=== PATIENT | female | born 1990 | race Caucasian/White ===

== ENCOUNTER 2024-04-21 17:06 | Emergency (ER) | payer MEDICAID, OTHER ==
[~2024-04-21] VITALS: Ht 160 cm; Wt 58.2 kg
[~2024-04-21 17:06] MED LIST: ALBU17AE27 IH
[2024-04-21 17:17] VITALS: BP 133/96; PULSE 92; RESP 18; TEMP 98.8
[2024-04-21] MEDS: ACETAMINOPHEN 325 MG TABLET PO ONE (17:57)
[2024-04-21] MEDS: ONDANSETRON HCL 4 MG TABLET PO ONE (17:57)
[2024-04-21 18:12] LABS: BASOPHILS % (AUTO) 0.7 % (0.0-2.0); HEMATOCRIT 38.6 % (36-46); HEMOGLOBIN 12.6 g/dL (12.0-16.0); LYMPHOCYTES # (AUTO) 2.4 K/uL (1.0-4.8); LYMPHOCYTES % (AUTO) 29.9 % (22.0-44.0); MEAN CORPUSCULAR HGB CONC 32.7 G/dL (31.0-37.0); MEAN CORPUSCULAR VOLUME 80 fL (80-100); MONOCYTES # (AUTO) 0.7 K/uL (0.1-1.0); MONOCYTES % (AUTO) 8.8 % (2.0-9.0); NEUTROPHILS # (AUTO) 4.7 K/uL (1.8-7.7); NEUTROPHILS % (AUTO) 59.6 % (40.0-70.0); PLATELET COUNT (AUTO) 367 K/uL (150-450); RED BLOOD CELL COUNT(AUTO) 4.86 MIL/uL (4.00-5.20); RED CELL DISTRIBUTION WIDTH 14.4 % (11.5-14.5); WHITE BLOOD COUNT (AUTO) 7.9 K/uL (4.5-11.0)
[2024-04-21 18:22] LABS: ANION GAP 8 mmol/L (8-16); CALCIUM, TOTAL 9.1 mg/dL (8.8-10.5); CARBON DIOXIDE 30 mmol/L (22-29); CHLORIDE 101 mmol/L (98-107); CREATININE 0.55 mg/dL (0.60-1.30); GLOMERULAR FILTR. RATE CALC > 60 mL/min (>60); GLUCOSE,RANDOM 123 mg/dL (70-110); POTASSIUM 3.5 mmol/L (3.5-5.1); SODIUM SERUM 139 mmol/L (136-145); UREA NITROGEN, BLOOD 8 mg/dL (7-18)
[2024-04-21 18:26] LABS: ALANINE AMINOTRANSFERASE 19 U/L (12-78); ALBUMIN 3.6 g/dL (3.4-5.0); ALKALINE PHOSPHATASE 82 U/L (46-116); ASPARTATE AMINOTRANSFERASE 13 U/L (15-37); BILIRUBIN,TOTAL 0.2 mg/dL (0.1-1.0); CREATINE KINASE, TOTAL ONLY 71 U/L (26-192); LIPASE 26 U/L (16-77); TOTAL PROTEIN, SERUM 7.8 g/dL (6.4-8.2)
[2024-04-21 18:31] LABS: TROPONIN I-HIGH SENSITIVITY 13 ng/L (<51)
== END 2024-04-21 19:05 | disposition home or self-care (01) ==
LOC: EMS 17:09
DX: M54.12 Radiculopathy, cervical region (principal); R07.9 Chest pain, unspecified; R11.0 Nausea; J45.909 Unspecified asthma, uncomplicated; Z88.0 Allergy status to penicillin
CPT/HCPCS: 99285; 71045; 80053; 82550; 83690; 84484; 84703; 85025; 36415; 93005; Q0162

== ENCOUNTER 2024-11-02 06:12 | Emergency (ER) | payer MEDICAID, OTHER ==
[~2024-11-02] VITALS: Ht 162.6 cm; Wt 58.2 kg
[2024-11-02 06:15] VITALS: TEMP 98.3
[2024-11-02] MEDS ORDERED: DIPH25CA85 PO (07:49)
[2024-11-02] MEDS: NEOMYCIN/POLYMYXIN B/HYDROCORT 7.5 ML OPHTHALMIC SUSPENSION OS ONE (08:14)
[2024-11-02] MEDS: DiphenhydrAMINE HCL 25 MG CAPSULE PO ONE (08:14)
[2024-11-02 08:22] VITALS: BP 121/81; PULSE 75; RESP 15; O2SAT 100
[2024-11-02] MEDS ORDERED: ERYT3.5O8 OU (20:19)
[2024-11-02] MEDS ORDERED: OFLO5DRO49 OS (20:20)
== END 2024-11-02 08:24 | disposition home or self-care (01) ==
LOC: EMS 06:15
DX: H10.12 Acute atopic conjunctivitis, left eye (principal); J45.909 Unspecified asthma, uncomplicated; Z88.0 Allergy status to penicillin
CPT/HCPCS: 99283

== ENCOUNTER 2024-11-02 18:22 | Emergency (ER) | payer MEDICAID ==
[~2024-11-02] VITALS: Ht 162.6 cm; Wt 56.8 kg
[~2024-11-02 18:22] MED LIST changes: -ALBU17AE27 IH; +DIPH25CA85 PO
[2024-11-02 18:29] VITALS: BP 128/52; PULSE 79; RESP 18; TEMP 98.3; O2SAT 98
[2024-11-02] MEDS: PROPARACAINE HCL 0.5% 15 ML OPHTHALMIC SOLUTION OS ONE (19:56)
[2024-11-02] MEDS: FLUORESCEIN SODIUM 1 MG STRIP OU ONE (20:06)
[2024-11-02] MEDS ORDERED: ERYT3.5O8 OU (20:19)
[2024-11-02] MEDS ORDERED: OFLO5DRO49 OS (20:20)
== END 2024-11-02 21:07 | disposition home or self-care (01) ==
LOC: EMS 18:22
DX: H10.9 Unspecified conjunctivitis (principal); J45.909 Unspecified asthma, uncomplicated; Z88.0 Allergy status to penicillin
CPT/HCPCS: 99283